=== PATIENT | female | born 1985 | race Caucasian/White ===

== ENCOUNTER 2017-10-21 04:39 | Inpatient (IN) | payer BC ==
--- OUTSIDE RECORDS SUMMARY | 2017-10-21 04:43 | XMS REPORT ---
:1985 External Reference #:[id number] Author Organization [facility] Address [address] [place] [address] Phone [phone] Care Team Providers Name Role Phone Valverde [facility] Primary Care Physician Unavailable Payers Type Date Identification Numbers Payment Provider Subscriber Commercial Policy Number: [id number] Patience BC/BS [facility] Patricia Dave PayID: [id number] [address] [address] [place] [address] Problems Date Description Provider Status Onset: 05/05/2017 H/O: section Kendal Hodges CNM Active Onset: 06/22/2015 Primigravida Lisa Baron NP Resolved Resolved: 02/21/2016 Family History Date Family Member(s) Problem(s) Comments Father A&W Mother A&W First Son A&W First Sister A&W Paternal Grandfather A&W Paternal Grandmother due to Colon Cancer () Maternal Grandfather A&W Maternal Grandmother A&W Social History Type Date Description Comments Education Highest Level Completed, Master's Degree Marital Status Lives With Spouse Lives With Son Pets 2 dogs Occupation Teacher [employer] Cigarette Use Does Not Smoke Cigarettes ETOH Use Alcohol Use Prior To 2 per week Recreational Drug Use Does Not Use Drugs Smoking Patient has never smoked Daily Caffeine Does not consume caffeine Exercise Type/Frequency Exercises regularly Seat Belt/Car Seat Always uses seat belt STD's No STD History Allergies, Adverse Reactions, Alerts Date Description Reaction Status Severity Comments 02/14/2015 NKDA active Medications Medication Date Status Form Strength Qnty SIG Indications Ordering Provider Oxycodone-Acet Active Tablets 5-325mg 14tabs 1 by Z01.818 Jas Duong aminophen 018 mouth Gelber, q4hr M.D. Ibuprofen Active Tablets 600mg 30tabs take one Z01.818 Jas Duong 018 tab by Gelber, mouth M.D. every 6 hours as needed pain Active Capsules Unknown Vitamin 000 [place] Hx Tablets 5-325mg 15tabs take 1 by Jas Duong 015 - mouth q6 Gelber, as needed M.D. 016 pain No Active Hx Lisa Medications 015 - Loraine, DISTRIBUTION SPEC 015 Medications Administered in Office Medication Date Status Form Strength Qnty SIG Indications Ordering Provider PT SCRN Tbco Administered Injection Jas Duong Id as Non User 018 GelSabas sanchez Injection Rho Administered Injection Phaelon (D) Immune 018 MD Jyoti Globulin, Human, One Dose Package Immunizations CPT Code Status Date Vaccine Lot # [id number] Given 08/05/2017 Tetnus, Diptheria Toxoids And Acellular Pertussis, 499PG PT > 7Yrs Old [address] Given 05/05/2017 Influenza Vaccine Quadrivalent Preser/Antibiotic [id number] Free Im Use 32831 Given 11/07/2015 Tetnus, Diptheria Toxoids And Acellular Pertussis, [id number] PT > 7Yrs Old Vital Signs Date Vital Result Comment 10/15/2017 BP Systolic 124 mmHg BP Diastolic 72 mmHg Height 65 inches 5'5" Weight 191.00 lb BMI (Body Mass Index) 31.8 kg/m2 Last Menstrual Period 1852105 2 Parity 1 03/24/2017 BP Systolic 102 mmHg BP Diastolic 68 mmHg Height 65 inches 5'5" Weight 150.00 lb BMI (Body Mass Index) 25.0 kg/m2 Last Menstrual Period 8184826 2 Parity 1 06/17/2016 BP Systolic 108 mmHg BP Diastolic 66 mmHg Height 65 inches 5'5" Weight 160.00 lb BMI (Body Mass Index) 26.6 kg/m2 Last Menstrual Period 2771479 1 Parity 1 04/01/2016 BP Systolic 110 mmHg BP Diastolic 80 mmHg Height 65 inches 5'5" Weight 166.00 lb BMI (Body Mass Index) 27.6 kg/m2 Last Menstrual Period 1788790 1 Parity 1 02/21/2016 BP Systolic 120 mmHg BP Diastolic 68 mmHg Body Temperature 97.6 F Height 65 inches 5'5" Weight 171.00 lb BMI (Body Mass Index) 28.5 kg/m2 Last Menstrual Period 6546875 1 Parity 1 06/22/2015 BP Systolic 110 mmHg BP Diastolic 64 mmHg Height 65 inches 5'5" Weight 152.00 lb BMI (Body Mass Index) 25.3 kg/m2 Last Menstrual Period 7081154 1 Parity 0 02/14/2015 BP Systolic 122 mmHg BP Diastolic 64 mmHg Height 65 inches 5'5" Weight 148.00 lb BMI (Body Mass Index) 24.6 kg/m2 Last Menstrual Period 7712714 0 Parity 0 Results Test Date Test Result H/L Range Note Laboratory test 09/23/2017 Genital For GRP B <pending> finding Strep Only Glucose Tolerance 07/29/2017 GTT 3HR Gestational (SEE NOTE) 1 3HR Gestational Laboratory test 07/22/2017 Glucose 1 HR Post 151 mg/dL 70-160 2 finding Prandial CBC With No Diff 07/22/2017 White Blood Count 12.0 10^3/uL High 3.5-10.8 Red Blood Count 3.35 10^6/uL Low 4.0-5.4 Hemoglobin 10.5 g/dL Low 12.0-16.0 Hematocrit 31 % Low 35-47 Mean Corpuscular Volume 93 fL 80-97 Mean Corpuscular Hemoglobin 31 pg 27-31 Mean Corpuscular HGB Conc 34 g/dL 31-36 Red Cell Distribution Width 13 % 10.5-15 Platelet Count 236 10^3/uL 150-450 Mean Platelet Volume 9 um3 7.4-10.4 Laboratory test finding 07/22/2017 AB Screen NEGATIVE 3 GC/Chlamydia Dna Probe 04/14/2017 Chlamydia trachomatis Rna Negative Negative Neisseria gonorrhoeae (GC) Rna Negative Negative PNL No Urine 03/24/2017 Rubella Screen Immune IU/mL Immune 4 Hemoglobin A1c 5.2 % Less than 6.0 5 Hepatitis B Surface Ag Nonreactive Nonreactive 6 Syphillis Igg W/Reflex RPR Nonreactive Nonreactive 7 CBC With No Diff 03/24/2017 White Blood Count 7.5 10^3/uL 3.5-10.8 Red Blood Count 4.26 10^6/uL 4.0-5.4 Hemoglobin 12.9 g/dL 12.0-16.0 Hematocrit 39 % 35-47 Mean Corpuscular Volume 91 fL 80-97 Mean Corpuscular Hemoglobin 30 pg 27-31 Mean Corpuscular HGB Conc 33 g/dL 31-36 Red Cell Distribution Width 13 % 10.5-15 Platelet Count 250 10^3/uL 150-450 Mean Platelet Volume 8 um3 7.4-10.4 Type And Screen 03/24/2017 Patient Blood Type A Negative Antibody Screen NEGATIVE HIV 1/2 AB Evaluation 03/24/2017 HIV 1 2 Antibody Nonreactive Nonreactive 8 Lead 03/24/2017 Submitting Laboratory [phone] () 9 Phone Lead <1.0 g/dL 0.0-4.9 10 Laboratory test finding 03/24/2017 TSH 0.46 mcIU/mL 0.34-5.60 11 T4 Free 0.78 ng/dL 0.61-1.12 12 Urine Culture And Sensitivities 03/24/2017 Urine Culture SEE RESULT BELOW 13 Laboratory test finding 06/17/2016 Cytology SEE RESULT BELOW 14 Human Papilloma Virus Rna Negative Negative 15 Laboratory test 01/03/2016 Genital For GRP B SEE RESULT BELOW 16 finding Strep Only Laboratory test 11/07/2015 Glucose 1 HR Post 103 mg/dL 70-160 17 finding Prandial CBC With No Diff 11/07/2015 White Blood Count 12.3 10^3/uL High 3.5-10.8 Red Blood Count 3.55 10^6/uL Low 4.0-5.4 Hemoglobin 11.4 g/dL Low 12.0-16.0 Hematocrit 35 % 35-47 Mean Corpuscular Volume 98 fL High 80-97 Mean Corpuscular Hemoglobin 32 pg High 27-31 Mean Corpuscular HGB Conc 33 g/dL 31-36 Red Cell Distribution Width 13 % 10.5-15 Platelet Count 232 10^3/uL 150-450 Mean Platelet Volume 9 um3 7.4-10.4 Laboratory test finding 11/07/2015 AB Screen NEGATIVE 18 GC/Chlamydia Dna Probe 08/17/2015 Chlamydia trachomatis Rna Negative Negative Neisseria gonorrhoeae (GC) Rna Negative Negative Urine Culture And 07/10/2015 Urine Culture SEE RESULT BELOW 19 Sensitivities Parvovirus B19 Igg & 06/22/2015 Parvovirus (B19) IgG 6.51 index < 0.90 20 Igm Antibody Parvovirus (B19) IgM Antibody 0.06 index <0.90 21 Parvovirus Interpretation See Comment 22 HIV 1/2 AB Evaluation 06/22/2015 HIV 1 2 Antibody Nonreactive Nonreactive 23 Type And Screen 06/22/2015 Antibody Screen NEGATIVE Patient Blood Type A Negative CBC With No Diff 06/22/2015 White Blood Count 9.2 10^3/uL 3.5-10.8 Red Blood Count 3.95 10^6/uL Low 4.0-5.4 Hemoglobin 12.5 g/dL 12.0-16.0 Hematocrit 37 % 35-47 Mean Corpuscular Volume 94 fL 80-97 Mean Corpuscular Hemoglobin 32 pg High 27-31 Mean Corpuscular HGB Conc 33 g/dL 31-36 Red Cell Distribution Width 13 % 10.5-15 Platelet Count 267 10^3/uL 150-450 Mean Platelet Volume 9 um3 7.4-10.4 RPR 06/22/2015 Pediatric/Maternal YES Syphilis IgG TNP Nonreactive RPR Nonreactive Nonreactive RPR Titer TNP PNL No Urine 06/22/2015 Rubella Screen Immune IU/mL Immune Hemoglobin A1c 5.1 % Less than 6.0 24 Hepatitis B Surface Ag Nonreactive Nonreactive 25 Laboratory test finding 02/14/2015 Cytology SEE RESULT BELOW 26 1 GLU Fast 81 Col: 07/29/17 1102 GLU 1HR 148 Col: 07/29/17 1202 GLU 2HR 125 Col: 07/29/17 1302 GLU 3HR 85 Col: 07/29/17 1402 GLU Interp Col: 07/29/17 1102 GTT normal ranges for obstetrics per the [place] [employer] (ACOG).Based on 100 gm glucose load: Fasting <95 mg/dl 1hr <180 mg/dl 2hr <155 mg/dl 3hr <140 mg/dl 2 [id number] 3 [id number] 4 [id number] 5 Therapeutic target for the treatment of diabetes Mellitus patients is <7% HBA1C, and in selective patients <6.0%.Please refer to [place] [employer] Diabetic care guidelines for further information. 6 [id number] 7 Warning: A positive result is not useful for establishing a diagnosis of syphilis. In most situations, such a result may reflect a prior treated infection; a negative result can exclude a diagnosis of syphilis except for incubating or early primary disease. 8 It is recognized that currently available assays for the detection of antibodies to HIV-1 and/or HIV-2 may not detect all infected individuals. HIV antibodies may be undetectable in some stages of the infection and in some clinical conditions. The performance of this assay has not been established for populations of infants or children. Assayed by Chemiluminescence Microparticle Immunoassay on the Siemens Advia Centaur CP. Values obtained with different methods or kits cannot be used interchangeably.The diagnostic specificity of the ADVIA Centaur 1/O/2 Enhanced assay in the low risk population was 99.90% (6052/6058) with a 95% confidence interval of 99.78 to 99.96%. 9 Test Performed by: [address] [address] REVISED REPORT --- Revised on 03/26/17 1900 --- [facility] Phone previously reported as: [phone] 10 ADDITIONAL INFORMATION Testing performed by Inductively Coupled Plasma-Mass Spectrometry (ICP-MS). This test was developed and its performance characteristics determined by [facility] in a manner consistent with CLIA requirements. This test has not been cleared or approved by the U.S. Food and Drug Administration. 11 [id number] 12 [id number] 13 SEE RESULT BELOW Name: PATRICIA DAVE: [address]: Wilfredo Posada [facility] Acct: [id number] Unit: [id number] AGE: 31 Location: [facility] Re03/24/17 SEX: F Status: REG REF SPEC: [id number] OSIEL: 03/24/17-[address]: Wilfredo Posada [facility] REQ: [id number] RECD: 03/24/17-1610 STATUS: COMP _ SOURCE: URINE SPDESC: ORDERED: Urine Culture COMMENTS: [id number] Procedure Result Reported Site Urine Culture Final 03/26/17- 1003 ML No growth of clinically significant organisms * ML - MAIN LAB ([facility]) . END OF REPORT * ML=Testing performed at Main Lab DEPARTMENT OF PATHOLOGY, [address] [place] [address] Tod Mason M.D. Director [facility] # [id number] 14 SEE RESULT BELOW Name: JOLIEPATRICIA : [address]: Lisa Baron NP Acct: [id number] Unit: [id number] AGE: 31 Location: [facility] Re06/17/16 SEX: F Status: REG REF SPEC: [id number] OSIEL: 06/17/16-[address] [facility] [address]: Lisa Baron NP REQ: [id number] RECD: 06/18/16-1213 STATUS: SOUT _ ORDERED: IMAGE ANALYSIS, HPV/Thin Prep COMMENTS: [id number] FINAL DIAGNOSIS Negative for Intraepithelial lesion or Malignancy A. Ectocervical/Endocervical Specimen Adequacy: Satisfactory of evaluation Transformation zone component identified Patient Information: HPV: High risk HPV RNA testing regardless of pap results. Actual Specimen Date: 06/17/16 Last Menstrual Date: 02/14/15 ?: N Date Time Test Result Flag (u) Normal Range 06/17/16 1540 HPV RNA Negative Negative The high-risk HPV types detected by the assay include: 16, 18, 31, 33, 35, 39, 45, 51, 52, 56, 58, 59, 66, and 68. Signed (signature on file) SANDRA Nuno(ASC) 06/19 1239 This Pap test was evaluated with the assistance of the 10BestThingsp Test Imaging System. Due to cytologic findings at the lining machine tender microscope, comprehensive manual rescreening by a First Crusher may be required. The Pap Smear is a screening test designed to aid in the detection of premalignant and malignant conditions of the uterine cervix. It is not a diagnostic procedure and should not be used as the sole means of detecting cervical cancer. Both false- positive and false- negative reports do occur. Depending on your risk status, a Pap smear should be obtained and evaluated every 1-3 years. END OF REPORT * ML=Testing performed at Main Lab DEPARTMENT OF PATHOLOGY, [address] [place] [address] Tod Mason M.D. Director [facility] # [id number] 15 The high-risk HPV types detected by the assay include: 16, 18, 31, 33, 35, 39, 45, 51, 52, 56, 58, 59, 66, and 68. 16 SEE RESULT BELOW Name: PATRICIA DAVE : [address]: Josephine Spence CNM Acct: [id number] Unit: [id number] AGE: 30 Location: [facility] Re01/03/16 SEX: F Status: REG REF SPEC: [id number] OSIEL: 01/03/16-[address] [facility] [address]: Josephine Spence [facility] REQ: [id number] RECD: 01/04/16-1043 STATUS: COMP _ SOURCE: CER/VAG/RE SPDESC: ORDERED: Grp B Strp Scrn COMMENTS: [id number] QUERIES: Is Patient Penicillin Allergic? N Is patient penicillin allergic and/or sensitivities needed? N Provider Requisition # C77#[id number]_ Procedure Result Reported Site Group B Strep Culture Screen Final 01/06/16- 952 ML Group B Strep Screen Negative * ML - MA[facility] LAB ([facility]) . END OF REPORT * ML=Testing performed at Main Lab DEPARTMENT OF PATHOLOGY, [address] [place] [address] Tod Mason M.D. Director [facility] # [id number] 17 [id number] 18 [id number] 19 SEE RESULT BELOW Name: PATRICIA DAVE : [address]: Lisa Baron NP Acct: [id number] Unit: [id number] AGE: 30 Location: [facility] Re07/10/15 SEX: F Status: REG REF SPEC: [id number] OSIEL: 07/10/[address]: Lisa Baron NP REQ: [id number] RECD: 07/10/15 STATUS: COMP _ SOURCE: URINE SPDESC: ORDERED: Urine Culture Procedure Result Reported Site Urine Culture Final 07/11/15817 ML No growth of clinically significant organisms * ML - MAIN LAB ([facility]) . END OF REPORT * ML=Testing performed at Main Lab DEPARTMENT OF PATHOLOGY, [address] [place] [address] Tod Mason M.D. Director [facility] # [id number] 20 Positive 21 Negative 22 RESULT: Results suggest past infection. Test Performed by: [facility] [place] [address] Steamfitter: Rasheed Rudd II, M.D., Ph.D. 23 It is recognized that currently available assays for the detection of antibodies to HIV-1 and/or HIV-2 may not detect all infected individuals. HIV antibodies may be undetectable in some stages of the infection and in some clinical conditions. The performance of this assay has not been established for populations of infants or children. Assayed by Chemiluminescence Microparticle Immunoassay on the Siemens Advia Centaur CP. Values obtained with different methods or kits cannot be used interchangeably.The diagnostic specificity of the ADVIA Centaur 1/O/2 Enhanced assay in the low risk population was 99.90% (6052/6058) with a 95% confidence interval of 99.78 to 99.96%. 24 Therapeutic target for the treatment of diabetes Mellitus patients is <7% HBA1C, and in selective patients <6.0%.Please refer to [place] [employer] Diabetic care guidelines for further information. 25 , Pediatric (<=12yrs) or Maternal?: YES 26 SEE RESULT BELOW Name: PATRICIA DAVE : [address]: Lisa Baron NP Acct: [id number] Unit: [id number] AGE: 29 Location: [facility] Re02/14/15 SEX: F Status: REG REF SPEC: [id number] OSIEL: 02/14/15-[address] [facility] [address]: Lisa Baron DISTRIBUTION SPEC REQ: [id number] RECD: 02/14/15-1344 STATUS: SOUT _ ORDERED: IMAGE ANALYSIS FINAL DIAGNOSIS Negative for Intraepithelial lesion or Malignancy A. Ectocervical/Endocervical Specimen Adequacy: Satisfactory of evaluation Transformation zone component identified Patient Information: HPV: Thin Layer Pap Test w/reflex to high risk HPV RNA testing when ASCUS Actual Specimen Date: 02/14/15 Last Menstrual Date: 01/22/15 Spec Date if unknown: None ?: N Signed (signature on file) Aj Patten 02/15/15 3347 This Pap test was evaluated with the assistance of the 10BestThingsp Test Imaging System. Due to cytologic findings at the lining machine tender microscope, comprehensive manual rescreening by a First Crusher may be required. The Pap Smear is a screening test designed to aid in the detection of premalignant and malignant conditions of the uterine cervix. It is not a diagnostic procedure and should not be used as the sole means of detecting cervical cancer. Both false- positive and false- negative reports do occur. Depending on your risk status, a Pap smear should be obtained and evaluated every 1-3 years. END OF REPORT * ML=Testing performed at Main Lab DEPARTMENT OF PATHOLOGY, [address] [place] [address] Tod Mason M.D. Director [facility] # [id number] Procedures Date CPT Code Description Status 10/08/2017 07995 Biophysical Profile Without Non Stress Test Completed 10/08/2017 12570 Echography Uterus Follow-Up Or Repeat Completed 09/23/2017 13056 Echography Uterus Limited Completed 07/22/2017 56340 Injection Intramuscular Or Subcutaneous Completed 05/30/2017 61309 Echography Uterus Complete Completed 03/24/2017 36358 OB Ultrasound First Trimester Completed 02/08/2016 66896 Delivery Only Completed 02/08/2016 03430 Delivery Routine Completed 02/06/2016 55445 Echography Uterus Limited Completed 02/06/2016 48708 Non-Stress Test Completed 01/03/2016 08722 Echography Uterus Limited Completed 11/07/2015 73342 Injection Intramuscular Or Subcutaneous Completed 10/12/2015 45957 Echography Uterus Follow-Up Or Repeat Completed 09/14/2015 54418 Echography Uterus Complete Completed 07/17/2015 18101 Echography Uterus Follow-Up Or Repeat Completed 06/22/2015 43283 OB Ultrasound First Trimester Completed Encounters Type Date Location Provider CPT E/M Dx Office Visit 06/17/2016 3:30p [facility] [place] [address] Z01.419 Office Visit 07/10/2015 8:30a [facility] [place] [address] Z36 R31.9 Office Visit 02/14/2015 2:00p [facility] [place] [address] V72.31 V76.2 Plan of Care Future Appointment(s):10/21/2017 9:30 am - Kendal Hodges CNM at [facility] 2:00 pm - Jas Sneed M.D. at [facility]10/28/2017 1:00 pm - Lorie Spence CNM at [facility]10/21/2017 9:30 am - Jas Sneed M.D. at [facility]
[2017-10-21] MEDS ORDERED: ceFOXitin(*) 2 GM in NS 0.9% 50 ML* 50 ML IVPB ONE (08:30)
[2017-10-21] MEDS ORDERED: Sodium Citrate/Citric Acid* 15 ML UDC PO ONE (08:49)
[2017-10-21] MEDS ORDERED: Buffered Lidocaine 0.9% SYRIN* 5 ML/SYR SYRINGE INTRADERM ONE (08:49)
[2017-10-21] MEDS ORDERED: Morphine PF AMP (0.5MG/ML)* 5 MG/10 ML AMP ONE (09:32)
[2017-10-21] MEDS ORDERED: Lidocaine 2% PF* 10 ML AMP ONE (09:33)
[2017-10-21] MEDS ORDERED: Bupivacaine 0.25% EPI 200,000* 30 ML SDV ONE (09:33)
[2017-10-21] MEDS ORDERED: Bupivacaine-MPF SPINAL* 7.5 MG/2 ML AMP ONE (09:34)
[2017-10-21] MEDS ORDERED: Phenylephrine IV* 40 MCG/ML 10 ML SYRINGE ONE (09:35)
[2017-10-21] MEDS ORDERED: OXYTOCIN* 10 UNITS/ML 1 ML VIAL ONE ×2 (11:21→11:37)
[2017-10-21] MEDS ORDERED: Ondansetron INJ* 2 MG/ML VIAL ONE (11:21)
[2017-10-21] MEDS ORDERED: Naloxone* 0.4 MG/ML 1 ML VIAL IV PRN ×2 (11:34→11:43)
[2017-10-21] MEDS ORDERED: fentaNYL* 50 MCG/ML 2 ML VIAL (100 MCG VIAL) IV PRN (11:34)
[2017-10-21] MEDS ORDERED: Ketorolac INJ* 30 MG/ML 1 ML VIAL IV PRN (11:34)
[2017-10-21] MEDS ORDERED: Ketorolac INJ* 30 MG/ML 1 ML VIAL ONE (11:37)
[2017-10-21] MEDS ORDERED: Ondansetron INJ* 2 MG/ML VIAL IV PRN (11:43)
[2017-10-21] MEDS ORDERED: oxyCODONE/Acetamin 5/325 MG* TAB PO PRN (11:43)
[2017-10-21] MEDS ORDERED: Naloxone* 2 MG in NS 0.9% 250 ML* 250 ML IV PRN (11:43)
[2017-10-21] MEDS ORDERED: Nalbuphine* 20 MG/ML 1 ML VIAL IV PRN (11:43)
[2017-10-21] MEDS ORDERED: fentaNYL* 50 MCG/ML 2 ML VIAL (100 MCG VIAL) ONE (11:43)
[2017-10-21] MEDS ORDERED: Glycerin ADULT SUPP PR PRN (14:21)
[2017-10-21] MEDS ORDERED: Witch Hazel PAD* JAR TOPICAL PRN (14:21)
[2017-10-21] MEDS ORDERED: Acetaminophen TAB* 325 MG PO PRN (14:21)
[2017-10-21] MEDS ORDERED: Dibucaine 1% 28.35 GM TUBE PR PRN (14:21)
[2017-10-21] MEDS ORDERED: Zolpidem TAB* 5 MG PO PRN (14:21)
[2017-10-21] MEDS ORDERED: Tetan/Diph/Pertus SYR(Tdap)* 0.5 ML SYR(BOOSTRIX) use SYR IM ONE (14:22)
[2017-10-21] MEDS ORDERED: Oxytocin in LR* 20 UNITS/1,000 ML BAG IVPB SCH (15:00)
[2017-10-21] MEDS: Ketorolac INJ* 30 MG/ML 1 ML VIAL IV PRN (17:54)
[2017-10-21] MEDS: Simethicone TAB* 80 MG TAB.CHEW PO SCH (18:07)
--- NOTE | 2017-10-21 23:55 | OP ---
DATE OF OPERATION: 10/21/17 - ROOM #115 DATE OF : [birth year] SURGEON: Jas Sneed MD CLERICAL ADMINISTRATOR: Kendal Hodges CNM. PRE-OP DIAGNOSIS: Previous section. POST-OP DIAGNOSIS: Previous section. OPERATIVE PROCEDURE: Low transverse section. ESTIMATED BLOOD LOSS: 600 cc. COMPLICATIONS: None. FINDINGS: This is a 32-year-old 2, para 1 with previous section who desired an elective repeat. At the time of , she had a viable male. Apgars were 8 and 9. Weight was 9 pounds 5 ounces. Normal appearing uterus, fallopian tubes, and ovaries. DESCRIPTION OF PROCEDURE: Patient identified, procedure identified as a low transverse section. The patient was taken to the operating room and prepped and draped in the usual fashion in the left lateral recumbent position under spinal anesthesia. A Pfannenstiel incision was made in the abdomen and carried down through fat, fascia, and peritoneum. A transverse incision was made in the lower uterine segment and extended laterally using a bandage scissors. The above was delivered through the incision using the vacuum extractor as the baby would not come out without assistance. Once the head was out, the rest of the baby delivered with ease. Cord was doubly clamped and cut , and the was handed to awaiting machine or machinery mechanic. Cord blood was obtained. Placenta delivered spontaneously. Uterus was wiped out with wet lap sponge. The uterine incision was then closed using 0 Polysorb in a running fashion. A second layer was used to imbricate the first layer. Good hemostasis was achieved with 0 Polysorb [id number] sutures. The uterus was placed back into the abdominal cavity, the gutters were wiped out with wet lap sponge and the incision was inspected and found to be hemostatic. Peritoneum was then closed using 3-0 Polysorb in a running fashion. Good hemostasis achieved in the subrectus layers. The fascia was closed using 0 Polysorb in a running fashion. Hemostasis achieved in the subcu. Copious irrigation was utilized and suctioned out, and the skin was closed with 4-0 Monocryl in a subcuticular fashion. All sponge and instrument counts were correct. The patient returned to the recovery room in stable condition. [id number]/[facility] #: [id number] [facility]
[2017-10-22] MEDS: Ketorolac INJ* 30 MG/ML 1 ML VIAL IV PRN ×2 (00:24→06:03)
[2017-10-22] MEDS: Docusate CAP* 100 MG PO SCH ×4 (00:35→19:54)
[2017-10-22] MEDS: Simethicone TAB* 80 MG TAB.CHEW PO SCH ×5 (00:35→19:54)
[2017-10-22] MEDS ORDERED: oxyCODONE/Acetamin 5/325 MG* TAB PO PRN ×2 (03:04)
[2017-10-22 09:00] LABS: ABS Basophils 0 10^3/ul (0-0.2); ABS Eosinophils 0 10^3/ul (0-0.6); ABS Lymphocytes 1.9 10^3/ul (1.0-4.8); ABS Monocytes 0.6 10^3/ul (0-0.8); ABS Neutrophils 9.6 10^3/ul (1.5-7.7); ABS Nucleated RBC 0 10^3/ul; Eosinophil % 0.4 % (0-6); Hematocrit 29 % (35-47); Hemoglobin 9.6 g/dl (12.0-16.0); Lymphocyte % 15.9 % (25-47); Mean Corpuscular HGB Conc 34 g/dl (31-36); Mean Corpuscular Hemoglobin 31 pg (27-31); Mean Corpuscular Volume 93 fL (80-97); Mean Platelet Volume 8.5 um3 (7.4-10.4); Nucleated Red Blood Cells % 0; Platelet Count 172 10^3/ul (150-450); Red Blood Count 3.07 10^6/ul (4.0-5.4); Red Cell Distribution Width 14 % (10.5-15); White Blood Count 12.2 10^3/ul (3.5-10.8)
[2017-10-22] MEDS: Ferrous Gluconate TAB* 324 MG TAB PO SCH ×2 (09:32→19:54)
[2017-10-22] MEDS: Ibuprofen TAB* 600 MG PO PRN ×2 (12:29→19:54)
[2017-10-23] MEDS: Ibuprofen TAB* 600 MG PO PRN ×2 (04:16→10:24)
[2017-10-23 08:09] VITALS: BP 107/56
[2017-10-23] MEDS: Ferrous Gluconate TAB* 324 MG TAB PO SCH (08:27)
[2017-10-23] MEDS: Docusate CAP* 100 MG PO SCH (08:27)
[2017-10-23] MEDS: Simethicone TAB* 80 MG TAB.CHEW PO SCH (08:27)
== END 2017-10-23 10:47 | disposition home or self-care (01) | DRG 540 ==
LOC: MCHOB 04:39 → UNDOADMIN 04:39 → MCHOB 08:01
PROVIDERS: ADMIT Obstetrics & Gynecology; ATTEND Obstetrics & Gynecology
PROC: 10D00Z1 Extraction of Products of Conception, Low, Open Approach (ICD-10-PCS; 2017-10-21)
PROC: 4A1HX4Z Monitoring of Products of Conception, Cardiac Electrical Activity, External Approach (ICD-10-PCS; 2017-10-21)
PROC: 10907ZC Drainage of Amniotic Fluid, Therapeutic from Products of Conception, Via Natural or Artificial Opening (ICD-10-PCS; principal; 2017-10-21 09:30)
DX: O34.211 Maternal care for low transverse scar from previous cesarean delivery (principal); O36.63X0 Maternal care for excessive fetal growth, third trimester, not applicable or unspecified; Z3A.39 39 weeks gestation of pregnancy; Z37.0 Single live birth; O90.81 Anemia of the puerperium; O62.1 Secondary uterine inertia
CPT/HCPCS: 36415; 85025; A9270-GY; J0694; J1885; J2001; J2405; J2590; J3010